=== PATIENT | female | born 1960 | race Caucasian/White ===

== ENCOUNTER 2021-04-26 19:18 | Emergency (ER) | payer BC ==
[~2021-04-26] VITALS: Ht 172.7 cm; Wt 58.1 kg
[2021-04-26] MEDS ORDERED: LISINOPRIL10 MG PO (19:25)
[2021-04-26] MEDS ORDERED: ZOLOFT100 MG PO (19:25)
[2021-04-26] MEDS ORDERED: SYNTHROID75 MC1 PO (19:25)
[2021-04-26] MEDS ORDERED: CLONAZEPAM 0.50.5 M1 PO (19:25)
[2021-04-26 20:00] LABS: ABSOLUTE BASOPHILS 0.1 thou/uL (0.0-0.2); ABSOLUTE EOSINOPHILS 0.2 thou/uL (0.0-0.7); ABSOLUTE LYMPHOCYTES 2.7 thou/uL (0.8-5.3); ABSOLUTE MONOCYTES 0.4 thou/uL (0.0-1.2); ABSOLUTE NEUTROPHILS 3.6 thou/uL (1.6-8.1); BASOPHILS 1.2 %; EOSINOPHILS 2.8 %; HEMATOCRIT 42.8 % (37.0-47.0); HEMOGLOBIN 14.4 gm/dL (12.0-15.0); LYMPHOCYTES 39.3 %; MCH 31.8 pg (26.0-34.0); MCHC 33.6 g/dL (28.0-37.0); MCV 94.6 fL (80.0-100.0); MONOCYTES 5.5 %; MPV 10.2 fl. (7.2-11.1); NUCLEATED RBCS 0 /100WBC; PLATELET COUNT* 143 thou/uL (150-400); POLYS 51.2 %; RBC 4.52 mil/uL (4.20-5.00); RDW-CV 13.3 % (10.5-14.5)
[2021-04-26] MEDS ORDERED: VALACYCLOVIR1000 MG PO (20:05)
[2021-04-26] MEDS ORDERED: VARENICLINE TA0.5 MG PO (20:05)
[2021-04-26] MEDS ORDERED: ESTROVEN 155 M155 MG PO (20:06)
[2021-04-26 20:14] LABS: CALCIUM 9.7 mg/dL (8.5-10.1); CREATININE 0.9 mg/dL (0.6-1.3); POTASSIUM 4.2 mmol/L (3.5-5.1)
[2021-04-26 20:28] LABS: ALBUMIN 4.2 g/dL (3.4-5.0); MAGNESIUM 2.1 mg/dL (1.8-2.4); TOTAL BILIRUBIN 0.4 mg/dL (<0.1-1.0); TOTAL PROTEIN 7.6 g/dL (6.4-8.2)
[2021-04-26 20:40] LABS: URINE BILIRUBIN NEGATIVE (Negative); URINE BLOOD NEGATIVE (Negative); URINE CLARITY CLEAR; URINE COLOR YELLOW; URINE GLUCOSE-RANDOM NEGATIVE (Negative); URINE KETONES NEGATIVE (Negative); URINE LEUKOCYTES-REFLEX TRACE (Negative); URINE NITRITE-REFLEX NEGATIVE (Negative); URINE PROTEIN NEGATIVE (Negative); URINE SPECIFIC GRAVITY 1.015 (1.005-1.030); URINE UROBILINOGEN 0.2 E.U./dl (0.2-1.0)
[2021-04-26 20:48] LABS: AMP/METHAMP Negative (Negative); BARBITURATES Negative (Negative); BENZODIAZEPINES Negative (Negative); CASTS None Seen /LPF (None Seen); COCAINE Negative (Negative); CRYSTALS None Seen /LPF (None Seen); METHADONE Negative (Negative); MUCUS None Seen strn/LPF (None Seen); OPIATES Negative (Negative); PCP Negative (Negative); SQUAMOUS NONE SEEN /LPF (0-3); THC Negative (Negative)
[2021-04-26 20:49] LABS: BACTERIA-REFLEX None Seen /HPF (None Seen); URINE RBC None Seen /HPF (0-2); URINE WBC-REFLEX 0-5 Rare /HPF (0-5)
[2021-04-26] MEDS ORDERED: NEURONTIN100 MG PO (21:48)
[2021-04-26 22:12] VITALS: BP 125/65
--- NOTE | 2021-04-27 12:17 | EKG ---
[place] [address] ELECTROCARDIOGRAM REPORT Name: LISA GENAO Room: [facility]#: [id number] Admission: 04/26/21 Attend Phys: Discharge: 04/26/21 Date of : 64 Date of Service: 04/26/211921 Report #: [id number] THIS REPORT FOR: //name// [facility] ED Test Date: 2021-04-26 Test Time: 19:22:38 Pat Name: LISA GENAO Department: Room: Gender: F Pumper Gager: [place] : 1960 Requested By: Deirdre Montes Order Number: [id number] MD: Marcus Machuca Measurements Intervals [place] Rate: 57 P: 91 MS: 162 QRS: 94 QRSD: 85 T: 53 QT: 401 QTc: 391 Interpretive Statements Sinus rhythm Borderline right axis deviation No previous ECG available for comparison Electronically Signed On 04-27-2021 12:17:39 HOSPICE OFFICE COORDINATOR by Marcus Machuca [email or web address] <ELECTRONICALLY SIGNED> By: Marcus Machuca MD, [facility] 04/27/217 21 21 Marcus Machuca MD, [facility] /EPI
== END 2021-04-26 22:12 | disposition home or self-care (01) ==
LOC: EDBD 19:18 → M.ERS 19:18
PROVIDERS: Emergency Medicine
DX: R56.9 Unspecified convulsions (principal); Z20.822 Contact with and (suspected) exposure to COVID-19; F32.9 Major depressive disorder, single episode, unspecified; I10 Essential (primary) hypertension; Z79.899 Other long term (current) drug therapy